=== PATIENT | female | born 1980 | race Caucasian/White ===

== ENCOUNTER 2018-10-07 12:34 | Emergency (ER) | payer OTHER ==
--- NOTE | 2018-10-07 12:49 | ED ---
Abdominal Pain/Female - HPI Summary HPI Summary: 38 year old F presenting to [facility] complains of sharp, constant RUQ abdominal pain and right flank pain since 03:00 today, 10/07/18. The patient rates the pain 8/10 in severity. Symptoms aggravated by nothing. Symptoms alleviated by nothing. Patient reports shortness of breath and nausea per triage note. Patient had appendectomy in 2012. LNMP 09/17/18. Patient takes vitamin D and probiotic every day. Vital signs while in room: HR 104 bpm, BP 114/82, O2 sat 99 % - History of Current Complaint Chief Complaint: EDAbdPain Stated Complaint: RIGHT ABD/FLANK PAIN PER PT Hx Obtained From: Patient Hx Last Menstrual Period: 09/17/18 ?: No Onset/Duration: Lasting Hours - since 03:00 today, Still Present Timing: Constant Severity Initially: Moderate Severity Currently: Severe Pain Intensity: 8 Pain Scale Used: 0-10 Numeric Location: Discrete At: RUQ Character: Sharp Aggravating Factor(s): Nothing Alleviating Factor(s): Nothing Associated Signs and Symptoms: Positive: Nausea, Other: - SOB Allergies/Adverse Reactions: Allergies Allergy/AdvReac Type Severity Reaction Status Date / Time No Known Allergies Allergy Verified 10/07/18 12:37 PMH/Surg Hx/FS Hx/Imm Hx Previously Healthy: No Endocrine/Hematology History: Denies: Hx Diabetes Cardiovascular History: Denies: Hx Hypertension Respiratory History: Denies: Hx Asthma - Surgical History Surgery Procedure, Year, and Place: Appendectomy 2012 Infectious Disease History: No Infectious Disease History: Denies: Traveled Outside the [place] in Last 30 Days - Family History Known Family History: Positive: Other - Mother has HCM - Social History Alcohol Use: Occasionally Alcohol Amount: 1 glass of wine Hx Substance Use: No Substance Use Type: Reports: None Hx Tobacco Use: No Smoking Status (MU): Never Smoked Tobacco Review of Systems Positive: Shortness Of Breath Positive: Abdominal Pain - RUQ, Nausea Positive: flank pain - right All Other Systems Reviewed And Are Negative: Yes Physical Exam - Summary Physical Exam Summary: Appearance: Ill-appearing, moderate pain distress, well-nourished Skin: Warm, color reflects adequate perfusion, dry Head: Normal Head/Face inspection, atraumatic Eyes: Conjunctiva clear ENT: Normal inspection Neck: Supple, no nodes, no JVD Respiratory: Lungs clear, normal breath sounds, no respiratory distress Cardio: RRR, No murmur, pulses normal, brisk capillary refill Abdomen: Tenderness in RUQ, soft, no rebound, no guarding, no masses, non- distended, no CVA tenderness Bowel sounds: Present Musculoskeletal: Strength Intact/ROM intact, no calf tenderness, no edema. Psychological: Normal Neuro: Alert, muscle tone normal, no focal deficit Triage Information Reviewed: Yes Vital Signs On Initial Exam: Initial Vitals Temp Pulse Resp BP Pulse Ox 99.1 F 104 22 114/82 99 10/07/18 12:38 10/07/18 12:38 10/07/18 12:38 10/07/18 12:38 10/07/18 12:38 Vital Signs Reviewed: Yes Diagnostics - Vital Signs Vital Signs Temp Pulse Resp BP Pulse Ox 10/07/18 12:38 99.1 F 104 22 114/82 99 - Laboratory Result Diagrams: 10/07/18 13:06 10/07/18 13:06 Lab Statement: Any lab studies that have been ordered have been reviewed, and results considered in the medical decision making process. - Ultrasound No standard instances Ultrasound Interpretation Completed By: Radiologist Summary of Ultrasound Findings: Gallbladder US shows BORDERLINE HEPATOMEGALY. ED physician has reviewed this report. Re-Evaluation - Re-Evaluation First Eval Re-Evaluation Time: 13:07 Change: Unchanged Comment: Patient will accept morphine for pain. She is tearful about the condition. Her friend is with her. Second Eval Re-Evaluation Time: 15:08 Change: Improved Comment: Patient given US results. States her pain is 0/10. Has not given urine sample yet. Ambulates to bathroom with steady gate. Third Eval Re-Evaluation Time: 15:50 Change: Unchanged Comment: Patient was given discharge instructions. Questions were answered to the best of my ability. Patient agrees to follow up with Dr. Lucas. Abdominal Pain Fem Course/Dx - Course Course Of Treatment: Patient medications reviewed this visit. Nurses notes reviewed. Bloodwork remarkable for bilirubin 1.1, white blood cell count 14. US Gallbladder shows BORDERLINE HEPATOMEGALY. UAs remarkable for white blood cells and bacteria. Urine sent for cultures. In ED course, patient was given IV fluids and Morphine and Zofran. Patient feels better and would like to go home. Patient will be discharged home with prescription for Percocet and follow up from Dr. Lucas, primary care provider, as soon as possible for further workup and pain management. Patient was instructed to return to ED for new or worsening symptoms. Patient understands and is agreeable to discharge plan. - Diagnoses Provider Diagnoses: RUQ abdominal pain, Right flank pain, Hepatomegaly Discharge - Sign-Out/Discharge Documenting (check all that apply): Patient Departure - Discharge Patient Received Moderate/Deep Sedation with Procedure: No - Discharge Plan Condition: Stable Disposition: HOME Prescriptions: oxyCODONE/Acetamin 5/325 MG* [Percocet 5/325 TAB*] 1 tab PO Q6H PRN #12 tab MDD 4 PRN Reason: Severe Pain Patient Education Materials: Acute Abdominal Pain (ED), Flank Pain (ED) Referrals: Cherrie Lucas MD [Primary Care Provider] - Additional Instructions: We have given you a copy of your ultrasound. It did show borderline liver enlargement, but no gallstones, and the right kidney and ureters were also normal. Your bilirubin is slightly elevated, but this may be a congenital condition called Gilbert's syndrome, which does not affect you clinically. It is just worth knowing that you carry a slightly elevated bilirubin. We have given you a copy of your ultrasound, and your labs will print out with these papers. Your white blood cell count is slightly elevated, but this is also nonspecific, and may just indicate inflammation, not infection. Your urine did not show any blood, but it did show a few white blood cells and bacteria. We have sent a urine culture, and we will contact you if you need further treatment based on the results of the urine culture. You should have follow up with Dr. Lucas soon, so she can order any further tests or treatment that are needed for your pain, and so she can re-evaluate you. We have prexcribed oxycodone (percocet) in case your pain returns. Return to the Emergency Department for new or worsening symptoms. - Attestation Statements Document Initiated by Scribe: Yes Documenting Scribe: Kiley Mcdonald Provider For Whom Abisaie is Documenting (Include Credential): Carolee Munoz MD Scribe Attestation: Kiley Diaz, scribed for Carolee Munoz MD on 10/07/18 at 1554. Status of Scribe Document: Ready
[2018-10-07] MEDS ORDERED: NS 0.9% 1000 ML** 1,000 ML IV ONE (13:05)
[2018-10-07] MEDS ORDERED: Ondansetron INJ* 2 MG/ML VIAL IV ONE (13:15)
[2018-10-07] MEDS ORDERED: Morphine 4 MG/ML VIAL (1 ml) 4 MG/ML VIAL IV ONE (13:15)
[2018-10-07 13:16] LABS: ABS Basophils 0 10^3/ul (0-0.2); ABS Eosinophils 0.2 10^3/ul (0-0.6); ABS Lymphocytes 0.6 10^3/ul (1.0-4.8); ABS Monocytes 0.7 10^3/ul (0-0.8); ABS Neutrophils 12.4 10^3/ul (1.5-7.7); ABS Nucleated RBC 0 10^3/ul; Eosinophil % 1.1 %; Hematocrit 43 % (33-41); Hemoglobin 14.1 g/dL (12.0-16.0); Lymphocyte % 4.6 %; Mean Corpuscular HGB Conc 33 g/dL (31-36); Mean Corpuscular Hemoglobin 31 pg (27-31); Mean Corpuscular Volume 93 fL (80-97); Mean Platelet Volume 8.4 fL (7.4-10.4); Nucleated Red Blood Cells % 0; Platelet Count 254 10^3/uL (150-450); Red Cell Distribution Width 13 % (10.5-15)
[2018-10-07 13:26] LABS: INR 1.08 (0.82-1.09)
[2018-10-07 13:37] LABS: ALT 12 U/L (7-52); AST 14 U/L (13-39); Albumin 4.5 g/dL (3.2-5.2); Albumin/Globulin Ratio 1.6 (1-3); Alkaline Phosphatase 44 U/L (34-104); Amylase 37 U/L (29-103); Anion Gap 8 mmol/L (2-11); BUN/Creatinine Ratio 16.3 (8-20); Blood Urea Nitrogen 14 mg/dL (6-24); C Reactive Protein 1.18 mg/L (<8.01); CO2 Carbon Dioxide 24 mmol/L (22-32); Calcium 9.4 mg/dL (8.6-10.3); Chloride 107 mmol/L (101-111); EGFR African American 88.9 (>60); EGFR Non-African American 73.5 (>60); Globulin 2.9 g/dL (2-4); Glucose 100 mg/dL (70-100); Magnesium 2.1 mg/dL (1.9-2.7); Potassium 3.9 mmol/L (3.5-5.0); Sodium 139 mmol/L (135-145); Total Protein 7.4 g/dL (6.4-8.9)
[2018-10-07 13:43] LABS: HCG Pregnancy < 0.60 mIU/mL
[2018-10-07 15:37] LABS: Urine Appearance Cloudy; Urine Bacteria 1+ (Absent); Urine Bilirubin Negative (Negative); Urine Blood Negative (Negative); Urine Color Yellow; Urine Glucose Negative (Negative); Urine Ketones Trace (Negative); Urine Nitrite Negative (Negative); Urine Protein Negative (Negative); Urine Red Blood Cell Trace(0-2/hpf) (Absent); Urine Specific Gravity 1.015 (1.010-1.030); Urine Squamous Epithelial Cell Present (Absent); Urine Urobilinogen Negative (Negative); Urine White Blood Cell 1+(6-10/hpf) (Absent)
[2018-10-07 16:09] VITALS: BP 108/73
--- NOTE | 2018-10-09 10:08 | PN ---
Progress Note - Progress Note Date of Service: 10/07/18 Note: Patient's urine culture final grew Staphylococcus saprophyticus 100,000 Patient was not placed on antibiotics prior to discharge We will await for sensitivities prior to dispension of any medications
== END 2018-10-07 16:07 | disposition home or self-care (01) ==
LOC: ED 12:34
DX: R10.11 Right upper quadrant pain (principal); R10.9 Unspecified abdominal pain; R16.0 Hepatomegaly, not elsewhere classified; Z90.49 Acquired absence of other specified parts of digestive tract
CPT/HCPCS: 36415; 76705; 80053; 81003; 81015; 82150; 83605; 83690; 83735; 84702; 85025; 85610; 85730; 86140; 87077; 87086; 96361; 96374; 96375; 99283; J2270; J2405